=== PATIENT | male | born 1955 | race African-American/Black ===

== ENCOUNTER 2021-12-30 02:26 | Emergency (ER) | payer BC, OTHER ==
[~2021-12-30] VITALS: Ht 182.9 cm; Wt 108.9 kg
[~2021-12-30 02:26] MED LIST: DIVA250T4 PO; OLAN5TAB3 PO
--- NOTE | 2021-12-30 02:55 | NUR ---
BIBRA 839 C/O GENITAL PAIN. PATIENT ALERT AND ORIENTED X3. AMBULATORY WITH NON LABORED BREATHING IN BED 02 AWAITING MD MCNALLY.
--- NOTE | 2021-12-30 03:00 | NUR ---
PT SEEN BY DR. VINAY SHAH
--- NOTE | 2021-12-30 03:02 | NUR ---
URINE COLLECTED AND SENT TO LAB
[2021-12-30] MEDS ORDERED: HYDROCODONE/APAP 5/325MG TABLET ONE (03:03)
[2021-12-30] MEDS: HYDROCODONE/APAP 5/325MG TABLET PO ONE (03:04)
[2021-12-30 03:24] LABS: BILIRUBIN,URINE SMALL (NEGATIVE); COLOR,URINE YELLOW (YELLOW); LEUKOCYTE ESTERASE ,URINE NEGATIVE (NEGATIVE); NITRITE, URINE NEGATIVE (NEGATIVE); PROTEIN,URINE 30 mg/dl (NEGATIVE); UGLUCOSE NEGATIVE (NEGATIVE)
--- NOTE | 2021-12-30 03:31 | NUR ---
PT RETURNED TO ER BED [address]
[2021-12-30] MEDS: RIVAROXABAN 15 MG TABLET ONE (03:33)
[2021-12-30] MEDS: RIVAROXABAN 15 MG TABLET PO SCH (03:38)
[2021-12-30 06:14] VITALS: BP 145/90
--- NOTE | 2021-12-30 06:14 | NUR ---
Patient discharged to home in stable condition. Written and verbal after care instructions given. Patient verbalizes understanding of instruction.
== END 2021-12-30 06:15 | disposition home or self-care (01) ==
LOC: ER 02:30
DX: N50.89 Other specified disorders of the male genital organs (principal); N43.3 Hydrocele, unspecified; I10 Essential (primary) hypertension; G89.29 Other chronic pain; F41.9 Anxiety disorder, unspecified; F32.A Depression, unspecified; Z87.442 Personal history of urinary calculi; Z98.871 Personal history of in utero procedure while a fetus; Z60.2 Problems related to living alone; Z79.899 Other long term (current) drug therapy
CPT/HCPCS: 72192-TC; 76870-TC